=== PATIENT | female | born 1955 | race Caucasian/White ===

== ENCOUNTER 2017-03-11 18:58 | Emergency (ER) | payer BC ==
--- NOTE | 2017-03-11 20:33 | RAD ---
Indication: Facial droop. CT of the brain was performed without IV contrast. Ventricular structures are midline. No midline shift is noted. Central and cortical atrophy is noted. There is no evidence of intracranial mass or hemorrhage. No other high or low density lesions are identified. Mastoid air cells and paranasal sinuses are otherwise unremarkable. IMPRESSION: No intracranial mass or hemorrhage is noted.
[2017-03-11 20:36] LABS: Hematocrit 40 % (35-47); Hemoglobin 13.6 g/dl (12.0-16.0); Mean Corpuscular HGB Conc 34 g/dl (31-36); Mean Corpuscular Hemoglobin 31 pg (27-31); Mean Corpuscular Volume 91 fL (80-97); Mean Platelet Volume 9 um3 (7.4-10.4); Red Blood Count 4.45 10^6/ul (4.0-5.4); Red Cell Distribution Width 14 % (10.5-15); White Blood Count 4.8 10^3/ul (3.5-10.8)
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
[2017-03-11 20:51] LABS: BUN/Creatinine Ratio 21.3 (8-20); Calcium 10.1 mg/dL (8.6-10.3); EGFR African American 174.4 (>60); EGFR Non-African American 135.6 (>60); Globulin 3.6 g/dL (2-4); Potassium 4.1 mmol/L (3.5-5.0); Total Bilirubin 0.5 mg/dL (0.2-1.0); Total Protein 7.6 g/dL (6.4-8.9)
[2017-03-11] MEDS ORDERED: ValACYclovir (*) 500 MG TAB PO ONE (21:11)
[2017-03-11] MEDS ORDERED: predniSONE TAB* 20 MG PO ONE (21:13)
[2017-03-11 21:30] VITALS: BP 123/77
== END 2017-03-11 21:29 | disposition home or self-care (01) ==
LOC: ED 18:58
DX: G51.0 Bell's palsy (principal)
CPT/HCPCS: 36415; 70450; 80053; 83605; 84484; 85025; 85610; 93005; 99283; J7512

== ENCOUNTER 2017-03-12 18:51 | Emergency (ER) | payer BC ==
[~2017-03-12 18:51] MED LIST: Insulin GLARGINE(*) 1 UNITS UNIT SUBCUT ONE
[2017-03-12 20:39] LABS: Hematocrit 39 % (35-47); Hemoglobin 13.1 g/dl (12.0-16.0); Mean Corpuscular HGB Conc 34 g/dl (31-36); Mean Corpuscular Hemoglobin 31 pg (27-31); Mean Corpuscular Volume 91 fL (80-97); Mean Platelet Volume 10 um3 (7.4-10.4); Red Blood Count 4.27 10^6/ul (4.0-5.4); Red Cell Distribution Width 14 % (10.5-15); White Blood Count 6.6 10^3/ul (3.5-10.8)
[2017-03-12 21:21] LABS: Albumin 4.1 g/dL (3.2-5.2); BUN/Creatinine Ratio 25.9 (8-20); Calcium 9.9 mg/dL (8.6-10.3); EGFR African American 136.8 (>60); EGFR Non-African American 106.4 (>60); Globulin 3.2 g/dL (2-4); Potassium 4.2 mmol/L (3.5-5.0); Total Bilirubin 0.6 mg/dL (0.2-1.0); Total Protein 7.3 g/dL (6.4-8.9)
[2017-03-12] MEDS ORDERED: Insulin GLARGINE(*) 1 UNITS UNIT ONE (21:51)
[2017-03-12] MEDS ORDERED: Insulin GLARGINE(*) 1 UNITS UNIT SUBCUT ONE (22:21)
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
[2017-03-12 23:50] VITALS: BP 108/91
== END 2017-03-12 23:57 | disposition home or self-care (01) ==
LOC: ED 18:51
DX: E11.65 Type 2 diabetes mellitus with hyperglycemia (principal)
CPT/HCPCS: 36415; 80053; 85025; 99283

== ENCOUNTER 2017-03-14 09:37 | Emergency (ER) | payer BC ==
[2017-03-14] MEDS ORDERED: NS 0.9% 1000 ML* 1,000 ML IV ONE (10:15)
[2017-03-14 11:26] LABS: Hematocrit 41 % (35-47); Hemoglobin 13.9 g/dl (12.0-16.0); Mean Corpuscular HGB Conc 34 g/dl (31-36); Mean Corpuscular Hemoglobin 31 pg (27-31); Mean Corpuscular Volume 91 fL (80-97); Mean Platelet Volume 9 um3 (7.4-10.4); Red Blood Count 4.56 10^6/ul (4.0-5.4); Red Cell Distribution Width 14 % (10.5-15)
[2017-03-14 11:37] LABS: Albumin 4.5 g/dL (3.2-5.2); BUN/Creatinine Ratio 20.7 (8-20); Calcium 10.2 mg/dL (8.6-10.3); EGFR African American 136.8 (>60); EGFR Non-African American 106.4 (>60); Globulin 3.8 g/dL (2-4); Potassium 3.5 mmol/L (3.5-5.0); Total Bilirubin 0.8 mg/dL (0.2-1.0); Total Protein 8.3 g/dL (6.4-8.9)
[2017-03-14 11:48] LABS: Urine Bacteria 1+ (Absent); Urine Bilirubin Negative (Negative); Urine Glucose Negative (Negative); Urine Nitrite Negative (Negative)
[2017-03-14] MEDS ORDERED: Iodixanol* (CONTRAST) 320 MG/ML 100 ML SDV IV ONE (12:26)
--- NOTE | 2017-03-14 12:49 | RAD ---
INDICATION: Right lower quadrant abdominal pain. COMPARISON: Comparison is made with a prior abdominal ultrasound from May 29, [address] of the abdomen and pelvis from May 16, 2013. TECHNIQUE: A CT scan of the abdomen and pelvis was performed with intravenous and oral contrast following intravenous injection of 85 ml of Visipaque 320 nonionic contrast. Contiguous axial sections were obtained from the lung bases through the symphysis pubis. Images were reconstructed in the coronal and sagittal planes. FINDINGS: There is mild subsegmental atelectasis at the right lung base. No pleural effusion is present. The liver is moderately enlarged with a slightly nodular contour and diffusely decreased in attenuation consistent with fatty infiltration which is unchanged from the prior exam. No significant focal hepatic abnormality is seen. The spleen is mildly enlarged without focal abnormality. The pancreas appears to be within normal limits. There is a gallstone in the region of the neck of the gallbladder which is also unchanged from the prior study. No gallbladder wall thickening or inflammatory change is seen. The kidneys and adrenal glands appear within normal limits in size. No hydronephrosis or focal renal abnormality is seen. There is mild thickening of the wall of the right renal pelvis and proximal ureter which is unchanged from the prior study. No renal or bladder calculi are seen. The aorta is normal in caliber with mild calcific plaque present. No significant enlarged retroperitoneal lymph nodes are seen. The stomach, small and large bowel appear nondistended. The appendix is within normal limits. There is mild sigmoid diverticulosis. There is no evidence for diverticulitis or colitis. There is a small periumbilical hernia containing fat. The uterus is anteverted and normal in size. No free intraperitoneal air or fluid is seen. No significant focal osseous abnormality is seen. There are calcifications adjacent to the right greater trochanter possibly indicating calcific tendinitis. IMPRESSION: 1. NO EVIDENCE FOR APPENDICITIS. 2. CHOLELITHIASIS WITHOUT EVIDENCE FOR ACUTE CHOLECYSTITIS. 3. HEPATOSPLENOMEGALY AND HEPATIC STEATOSIS. 4. THICKENING OF THE WALL OF THE RIGHT RENAL PELVIS AND PROXIMAL URETER, UNCHANGED.
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
[2017-03-14 14:09] VITALS: BP 141/70
== END 2017-03-14 14:09 | disposition home or self-care (01) ==
LOC: ED 09:37
DX: R10.31 Right lower quadrant pain (principal); R11.0 Nausea
CPT/HCPCS: 36415; 74177; 80053; 81003; 81015; 83690; 84484; 85025; 85610; 85730; 86618; 87086; 99283; Q9967